=== PATIENT | male | born 1955 | race Caucasian/White ===

== ENCOUNTER 2019-09-09 18:45 | Emergency (ER) | payer OTHER ==
[~2019-09-09] VITALS: Ht 175.3 cm; Wt 100.7 kg
[2019-09-09 18:52] VITALS: BP 174/82
[2019-09-09] MEDS ORDERED: BACITRACIN OINT 500 UNITS/GM PKT TP ONE (21:05)
[2019-09-09 21:24] VITALS: BP 174/82
== END 2019-09-09 21:24 | disposition home or self-care (01) ==
LOC: MED 18:45
DX: S62.522A Displaced fracture of distal phalanx of left thumb, initial encounter for closed fracture (principal); V87.8XXA Person injured in other specified noncollision transport accidents involving motor vehicle (traffic), initial encounter; Y93.55 Activity, bike riding; Y92.89 Other specified places as the place of occurrence of the external cause; Y99.8 Other external cause status
CPT/HCPCS: 99282; 99283